=== PATIENT | male | born 1980 | race Caucasian/White ===

== ENCOUNTER 2022-04-19 11:08 | Inpatient (IN) ==
[~2022-04-19 11:08] MED LIST: SODIUM CHLORIDE 0.9% 1000ML 1,000 ML IV STA
--- NOTE | 2022-04-19 11:21 | Critical Care Consultation ---
Date of Consultation April 19, 2022 Assessment & Plan (1) Hanging, undetermined whether accidentally or purposely inflicted: Reason Critically Ill: 41-year-old mild male unresponsive after being found hanging in cell PLAN: Neuro: Acute encephalopathy -Suspect specific anoxic injury: Reported 20 minutes of possible strangulation -CT scan of head and neck pending will likely obtain MRI of brain and cervical spine Resp: Respiratory failure after strangulation CV: Cardiac arrest secondary to asphyxia -Maintain normothermia Fluids/Renal: Rule out acute kidney injury ID: No indication for anti-infectives GI/Nutrition: Rule out transaminitis/shock liver Heme: DVT prophylaxis: SCDs Endocrine: ICU hyperglycemia protocol Vascular access: Peripheral IVs Code Status: Full code Disposition: ICU (2) Cardiac arrest due to trauma: Supervising Physician Co-Signing Physician Notes I have personally spent 40 minutes of critical care time in the direct management of this patient. This is a life/limb threatening event. This includes time spent evaluating patient, direct bedside care, chart review, placing orders, interpretation of diagnostic studies, discussion with consultants, patient, and/or family members regarding treatment decisions, as well as other required patient management activities. This time is exclusive of all separately billable procedures, and teaching time and separate from and in addition to any other critical care service time. History of Present Illness Reason for Consultation: Hanging Requesting Physician: Michael Champion History of Present Illness Patient is a 41-year-old male who was brought in emergently from the half-way system, patient was reportedly found in his cell hanging, history is obtained from EMS providers, there was remote report of prior attempts. No additional history is available at this time. He received 2 rounds of epinephrine and CPR and had return of spontaneous circulation. His pupils have been fixed and dilated and he has had no spontaneous movements of his own. Review of Systems Review of Systems: Unobtainable due to endotracheal tube Physical Exam Physical Exam: General: GCS 3T, Neuro: Pupils fixed, dilated no obvious reactivity. No obvious cough, no spontaneous movements, no Babinski reflex unable to elicit patellar reflex at this time unable to elicit biceps reflex Skin: Warm, dry, numerous tattoos Head: Evidence of petechiae around face, sclera is edematous Neck: Arrived in cervical collar, ligature miki across the anterior portion of neck Ears, nose, mouth and throat: Obscured by endotracheal tube Cardiovascular: 2+ palpable pulses in all 4 extremities, normal sinus on monitor Respiratory: no respiratory distress, scattered rhonchi bilaterally Gastrointestinal: Non distended, no obvious hepatosplenomegaly Musculoskeletal: No obvious deformity Results & Data Critical Care Results & Data Lab & Micro Results (Past 24 Hours) No Data to Display No Data to Display No Data to Display Coding Level of Care Code 86845 CRITICAL CARE 1ST 30-74M Diagnoses Hanging, undetermined whether accidentally or purposely inflicted T71.164A Cardiac arrest due to trauma I46.8
--- NOTE | 2022-04-19 11:25 | Emergency Department Note ---
Impression & Plan Respiratory arrest, Atrial fibrillation with rapid ventricular response, Cardiac arrest, Acidosis, Intentional self-harm by hanging ED Provider Note NAME: JANEEN [id number] ASAD AGE: 41 SEX: M : 1980 ARRIVES VIA: Ambulance INFORMANT: [ems] ED PROVIDER(S): [Michael Champion MD] CHIEF COMPLAINT: Respiratory/cardiac arrest HISTORY OF PRESENT ILLNESS: The patient is a 50-year-old male from the local [facility] [place] [facility]. He was found hanging in his cell. He had last been seen 20 minutes prior. He was not breathing and there was no pulse. CPR was started immediately. An AED was shane lied and there was no shock advised. His initial rhythm was reported to be PEA. EMS arrived and continued CPR, performed endotracheal intubation and gave 2 rounds of epinephrine. Patient regained a pulse. He received 700 cc of saline in route. Initially, the patient was felt to be in atrial fibrillation. The blood pressure was in the 90s systolic. The patient was transported to our hospital. Patient does have a history of self hanging once before. Patient has made no attempt to take a breath on his own, there has been no movement of his extremities. By EMS report, his pupils appeared fixed and dilated. PMHx/PSHx: See Below SOCIAL HISTORY: See Below. PHYSICAL EXAM: GENERAL: Patient is in no acute distress. HEENT: No acute trauma, normocephalic atraumatic, mucous membranes moist. There is an oral endotracheal tube in place. Pupils at around 3 to 4 mm and fixed. They are equal bilaterally. Facial petechiae seen. NECK: No stridor, trachea is midline. There is a deep abrasion/hanging miki to the anterior neck. LUNGS: Clear to auscultation bilaterally with bagged ventilation, no wheeze, no rhonchi, breath sounds equal. HEART: Irregular rhythm, mildly tachycardic, no obvious murmur. ABDOMEN: Soft, nondistended. EXTREMITIES: No cyanosis or edema, no extremity gross deformities to indicate trauma. NEUROLOGIC: Pupils appear fixed. There is no attempt to take a spontaneous breath. No movement of the upper or lower extremities. No response to pain. SKIN: No jaundice, no diaphoresis. Back: No contusions, no step-off of the thoracic or lumbar spine. Genitalia: Circumcised, no erythema, no contusion. DIFFERENTIAL DIAGNOSIS: Respiratory arrest, cardiac arrest, [place], anoxic brain injury, dysrhythmia, electrolyte imbalance, acidosis, among others. EMERGENCY DEPARTMENT COURSE/PROCEDURES: Prior/Outside records reviewed: EMS records. ECG per my interpretation: Indication was cardiac arrest. The ECG shows what appears to be atrial fibrillation with a wide QRS in the form of a right bundle branch block. The rate was 106. No ST elevation was seen however, there was significant ST depression noted laterally and inferiorly. QTc was 518. No PVCs. No previous ECGs available for comparison. ECG #2 per my interpretation: Indication was cardiac arrest. The ECG shows a rapid atrial fibrillation with a rate of 175. There is a right bundle branch block pattern. PVCs are seen. There is some ST depression noted in the inferior and lateral leads. There is no obvious ST elevation. The QTc is 505. Compared to today's earlier ECG, the rate has increased, the QRS appears to have narrowed. Continuous Cardiac Monitoring per my interpretation: An order was placed for continuous cardiac monitoring. The monitor shows a rate of 109 with atrial fibrillation. Critical Care Note: I have personally spent 52 minutes of critical care time in the direct management of this patient. This includes bedside care, interpre tation of diagnostic studies, and testing, discussion with consultants, patient, and family members, and other required patient management activities. This 52 minutes is in excess of all separately billable procedures. Central Line placement: This procedure was performed by me. The area for the procedure was cleansed sterilely and prepared for the procedure. Sterile marlene hnique was employed. Using the Seldinger technique, I was able to cannulate the right femoral vein. No significant complications. There was no arterial stick during the procedure. All ports did flush well. The line was then sutured into position. MEDICAL DECISION MAKING: There is a moderate leukocytosis, this could be consistent with infection or just the stress of the presentation. There was a normal hemoglobin and platelet count. INR was slightly elevated. Initial ABG showed a pH of 6.95 and CO2 retention with a value of 109. Creatinine was slightly high at 1.56, glucose was elevated at around 300. Lactic acid level was quite high at over 11, this would be consistent with hypoxia. AST and ALT were elevated. Troponin was elevated consistent with cardiac injury/strain. Lipase was elevated at 121. COVID test returned negative. ECG showed atrial fibrillation with a wide QRS and a right bundle branch block. There was no ST elevation. Brain CT suggested anoxic injury with loss of spencer-white matter differentiation. C-spine CT did not show any fracture or vascular injury. Chest film per my review did not show CHF, pneumothorax or cardiomegaly. The endotracheal tube was in proper position On exam, the patient's pupils were fixed, they did not react to light. Petechial hemorrhaging was seen across the face consistent with hanging. The p atient did not have any spontaneous respirations and there was no movement of his extremities seen even with painful stimuli. During the patient's ED stay, he did again lose a pulse. He received CPR, 1 dose of IV epinephrine, 1 dose of IV calcium, 2 doses of IV bicarbonate. He regained a pulse with this regimen. The patient's ventilation rate was increased to help combat the respiratory acidosis. Repeat ABG showed improvement of the acidosis and improvement of the CO2 retention. The patient's blood pressure dropped during his stay. He was ordered for 1 L of IV saline. He was initially placed on an epinephrine drip however, this caused a much faster heart rate. Patient was switched to a phenylephrine drip to control the blood pressure. I did place a right femoral central line as noted above, no complications. Patient was ordered for a nasogastric tube as well as a Mukherjee catheter. The ICU was contacted, Dr. Abbott did arrive in the room. Arctic cooling was not initiated. I spoke to case management, I did speak with the [facility] [place] [facility], the on-call hospitalist was consulted. In short, the patient presents in cardiac arrest from what was likely a respiratory arrest. He is in critical condition with evidence for anoxic brain injury. His chance for survival is extremely limited. DISPOSITION: The patient's presentation and findings warrant a hospital stay and ICU care. Past Med/Surg History Medical History No significant medical problems Social History Smoking Status: Unknown if ever smoked Hx Alcohol Use: No Hx Substance Use: No Forensic Anthropologist Required: No Current Living Situation: Other Feels Safe at Home: No Is there a partner from a previous relationship who is making you feel unsafe now?: No Any Concerns about Your Family Situation: No Would You Like to Speak to Someone About Your Situation: No Assistive Devices: None Allergies Allergies Allergy/AdvReac Type Severity Reaction Status Date / Time Fish Containing Products Allergy Unknown Verified 04/19/22 12:21 Home Meds Home Medications Medication Instructions Recorded Confirmed guanfacine 2 mg tablet,extended 2 mg PO DAILY 04/19/22 04/19/22 release 24 hr saliva stimulant comb. no.3 2 spray mucous membrane TID PRN 04/19/22 04/19/22 (Biotene Moisturizing Mouth Dry Mouth mucosal spray) topiramate 50 mg tablet 50 mg PO DAILY 04/19/22 04/19/22 Results & Data (ED) Vital Signs Vital Signs - 24 hr 04/19/22 11:09 04/19/22 11:10 04/19/22 11:27 Pulse Rate 121 H Pulse Rate [Apical] 121 H Blood Pressure [Right Arm] 144/80 H Blood Pressure Mean [Right Arm] 101 Sepsis Recent Fever Within 48 Hours No Sepsis New/Unexplained Change in Mental Status N/A Sepsis Action Taken by Nursing No Action Required Home Medications Current Medication List: was personally reviewed by me Laboratory Data Attestation: I reviewed the patient's lab results. 04/19/22 11:27 04/19/22 11:27 Lab Results 04/19/22 04/19/22 04/19/22 Range/Units 11:27 11:27 11:27 WBC (4.8-10.8) K/ul RBC (4.70-6.10) M/uL Hgb (14.0-18.0) g/dl Hct (42.0-52.0) % MCV (80.0-100.0) fL MCH (25.0-34.0) pg MCHC (32.0-36.0) g/dL RDW Std Deviation (36.4-46.3) fL RDW Coeff of Lyndsay (11.5-14.5) % Plt Count (130-400) K/uL MPV (9.4-12.4) fL Absolute Nucleated RBC (0-0.12) K/uL Nucleated RBC % (auto) % Neutrophils % (Manual) % Lymphocytes % (Manual) % Monocytes % (Manual) % Metamyelocytes % (Man) % Myelocytes % (Man) % Neutrophils # (Manual) (1.40-6.50) K/uL Total Absolute Neuts (1.4-6.5) K/uL Lymphocytes # (Manual) (1.2-3.4) K/uL Total Abs Lymphocytes (1.2-3.4) K/uL Monocytes # (Manual) (0.11-0.59) K/uL Metamyelocytes # (Man) (0-0) K/uL Myelocytes # (Manual) (0-0) K/uL Echinocytes PT 14.0 H (9.0-12.0) Seconds INR 1.3 H (0.9-1.1) APTT 44.6 H (21.0-31.0) Seconds PTT Ratio 1.6 Sodium 138 (136-145) mmol/L Potassium 4.8 (3.5-5.1) mmol/L Chloride 104 (98-107) mmol/L Carbon Dioxide 20 L (21-32) mmol/L Anion Gap 14 H (3-11) BUN 12 (6-23) mg/dl Creatinine 1.56 H (0.6-1.4) mg/dl Est Cr Clr Drug Dosing Not Reportable Est GFR ( Amer) 63.5 ml/min Est GFR (Non-Af Amer) 54.8 ml/min BUN/Creatinine Ratio 7.7 L (10-20) Glucose 315 H* (70-99(Fasting)) mg/dl Lactate 11.2 H* (0.4-2.0) mmol/L Calcium 8.8 (8.5-10.1) mg/dl Total Bilirubin 0.4 (0.2-1.0) mg/dl AST 705 H (13-39) U/L ALT 1411 H (7-52) U/L Alkaline Phosphatase 94 (34-104) U/L Total Creatine Kinase 333 H (30-223) U/L Troponin I High Sens 136.8 H* (0-20) pg/ml Total Protein 6.0 (6.0-8.3) gm/dl Albumin 3.8 (3.4-5.0) gm/dl Globulin 2.2 L (2.5-4.0) gm/dl Albumin/Globulin Ratio 1.7 (0.9-2) Lipase 121 H (11-82) U/L 04/19/22 Range/Units 11:27 WBC 15.94 H (4.8-10.8) K/ul RBC 5.28 (4.70-6.10) M/uL Hgb 15.9 (14.0-18.0) g/dl Hct 48.3 (42.0-52.0) % MCV 91.5 (80.0-100.0) fL MCH 30.1 (25.0-34.0) pg MCHC 32.9 (32.0-36.0) g/dL RDW Std Deviation 41.8 (36.4-46.3) fL RDW Coeff of Lyndsay 12.6 (11.5-14.5) % Plt Count 191 (130-400) K/uL MPV 10.2 (9.4-12.4) fL Absolute Nucleated RBC 0.02 (0-0.12) K/uL Nucleated RBC % (auto) 0.1 % Neutrophils % (Manual) 70 % Lymphocytes % (Manual) 22 % Monocytes % (Manual) 4 % Metamyelocytes % (Man) 2 % Myelocytes % (Man) 2 % Neutrophils # (Manual) 11.16 H (1.40-6.50) K/uL Total Absolute Neuts 11.16 H (1.4-6.5) K/uL Lymphocytes # (Manual) 3.51 H (1.2-3.4) K/uL Total Abs Lymphocytes 3.51 H (1.2-3.4) K/uL Monocytes # (Manual) 0.64 H (0.11-0.59) K/uL Metamyelocytes # (Man) 0.32 H (0-0) K/uL Myelocytes # (Manual) 0.32 H (0-0) K/uL Echinocytes 1+ PT (9.0-12.0) Seconds INR (0.9-1.1) APTT (21.0-31.0) Seconds PTT Ratio Sodium (136-145) mmol/L Potassium (3.5-5.1) mmol/L Chloride (98-107) mmol/L Carbon Dioxide (21-32) mmol/L Anion Gap (3-11) BUN (6-23) mg/dl Creatinine (0.6-1.4) mg/dl Est Cr Clr Drug Dosing Est GFR ( Amer) ml/min Est GFR (Non-Af Amer) ml/min BUN/Creatinine Ratio (10-20) Glucose (70-99(Fasting)) mg/dl Lactate (0.4-2.0) mmol/L Calcium (8.5-10.1) mg/dl Total Bilirubin (0.2-1.0) mg/dl AST (13-39) U/L ALT (7-52) U/L Alkaline Phosphatase (34-104) U/L Total Creatine Kinase (30-223) U/L Troponin I High Sens (0-20) pg/ml Total Protein (6.0-8.3) gm/dl Albumin (3.4-5.0) gm/dl Globulin (2.5-4.0) gm/dl Albumin/Globulin Ratio (0.9-2) Lipase (11-82) U/L Administered Medications Discontinued Medications Amiodarone HCl/Dextrose (Amiodarone 150mg / 100ml D5w) Confirm Administered Dose 150 mg IV .STK-MED ONE Stop: 04/19/22 14:03 Last Admin: 04/19/22 14:16 Dose: Not Given Documented By: ES Amiodarone HCl/Dextrose (Amiodarone 360mg / 200ml D5w) Confirm Administered Dose 360 mg IV .STK-MED ONE Stop: 04/19/22 14:03 Last Admin: 04/19/22 14:16 Dose: Not Given Documented By: ES Amiodarone HCl (Amiodarone Iv Bolus & Drip) 1 each IV NOW STA; Protocol Stop: 04/19/22 14:06 Last Admin: 04/19/22 14:17 Dose: Not Given Documented By: ES Sodium Chloride (Nss 1000ml) 1,000 mls @ 999 mls/hr IV .Q1H1M STA Stop: 04/19/22 12:05 Last Infusion: 04/19/22 11:45 Dose: 0 mls/hr Documented By: Admin: 04/19/22 11:29 Dose: 999 mls/hr Documented By: RC Epinephrine HCl () 4 mg in 254 mls @ 51.092 mls/hr IV .Q4H59M [facility]; Protocol Stop: 05/19/22 12:44 Last Admin: 04/19/22 13:48 Dose: Not Given Documented By: ES Phenylephrine HCl (Phenylephrine/Nss) 25 mg in 250 mls @ 26.82 mls/hr IV .Q9H20M [facility] [place]; Protocol Stop: 05/19/22 12:45 Last Admin: 04/19/22 13:48 Dose: Not Given Documented By: YAZMIN Sodium Bicarbonate 75 meq/ (Sodium Chloride) 1,075 mls @ 125 mls/hr IV .Q8H36M ARTUR Stop: 05/19/22 13:14 Last Admin: 04/19/22 13:48 Dose: Not Given Documented By: YAZMIN Vasopressin 20 units/ Sodium (Chloride) 101 mls @ 12.12 mls/hr IV .Q8H20M [facility] [place] Stop: 05/19/22 13:14 Last Infusion: 04/19/22 15:49 Dose: 0 unit/min, 0 mls/hr Documented By: Infusion: 04/19/22 14:10 Dose: 0.04 unit/min, 12.1 mls/hr Documented By: Admin: 04/19/22 13:46 Dose: 0.04 unit/min, 12.1 mls/hr Documented By: YAZMIN Co-signed By: ANDI Epinephrine HCl () 4 mg in 254 mls @ 6.812 mls/hr IV .Q24H [facility] [place]; Protocol Stop: 05/19/22 13:14 Last Titration: 04/19/22 15:30 Dose: 0 mcg/kg/min, 0 mls/hr Documented By: Titration: 04/19/22 14:10 Dose: 0 mcg/kg/min, 0 mls/hr Documented By: Admin: 04/19/22 13:47 Dose: 0.02 mcg/kg/min, 6.8 mls/hr Documented By: YAZMIN Co-signed By: ANDI Norepinephrine Bitartrate (Levophed/D5w) 4 mg in 250 mls @ 16.763 mls/hr IV .F16H85Y [facility] [place]; Protocol Stop: 05/19/22 13:14 Last Titration: 04/19/22 15:30 Dose: 0 mcg/kg/min, 0 mls/hr Documented By: Titration: 04/19/22 14:18 Dose: 0 mcg/kg/min, 0 mls/hr Documented By: Titration: 04/19/22 14:10 Dose: 0.1 mcg/kg/min, 33.5 mls/hr Documented By: Admin: 04/19/22 13:46 Dose: 0.05 mcg/kg/min, 16.8 mls/hr Documented By: YAZMIN Co-signed By: ANDI Phenylephrine HCl (Phenylephrine/Nss) 25 mg in 250 mls @ 26.82 mls/hr IV .Q9H20M [facility] [place]; Protocol Stop: 05/19/22 13:14 Last Titration: 04/19/22 15:30 Dose: 0 mcg/kg/min, 0 mls/hr Documented By: NAYELI Co-signed By: [id number] Admin: 04/19/22 14:59 Dose: 6 mcg/kg/min, 321.8 mls/hr Documented By: YAZMIN Co-signed By: NAYELI Titration: 04/19/22 14:56 Dose: 6 mcg/kg/min, 321.8 mls/hr Documented By: YAZMIN Co-signed By: [email or web address] Titration: 04/19/22 14:10 Dose: 6 mcg/kg/min, 321.8 mls/hr Documented By: YAZMIN Co-signed By: ANDI Admin: 04/19/22 13:58 Dose: 0.5 mcg/kg/min, 26.8 mls/hr Documented By: YAZMIN Co-signed By: MARY Sodium Bicarbonate 150 meq/ (Sodium Chloride) 1,150 mls @ 100 mls/hr IV .T21Q50A [facility] [place] Stop: 05/19/22 13:29 Last Infusion: 04/19/22 15:30 Dose: 0 mls/hr Documented By: Admin: 04/19/22 13:48 Dose: 100 mls/hr Documented By: YAZMIN Amiodarone HCl/Dextrose (Nexterone / D5w) 150 mg in 100 mls @ 600 mls/hr IV NOW STA Stop: 04/19/22 14:14 Last Infusion: 04/19/22 14:17 Dose: 0 mls/hr Documented By: YAZMIN Co-signed By: [id number] Admin: 04/19/22 14:15 Dose: 600 mls/hr Documented By: YAZMIN Co-signed By: [id number] Amiodarone HCl/Dextrose (Nexterone / D5w) 360 mg in 200 mls @ 33.333 mls/hr IV ONE ONE Stop: 04/19/22 20:16 Last Infusion: 04/19/22 15:47 Dose: 0 mg/min, 0 mls/hr Documented By: NAYELI Co-signed By: [id number] Admin: 04/19/22 14:16 Dose: 1 mg/min, 33.3 mls/hr Documented By: YAZMIN Co-signed By: [id number] Miscellaneous ([facility] Protocol For Hyperglycemia) 1 each N/A ACHS ARTUR Stop: 04/21/22 11:29 Last Admin: 04/19/22 13:47 Dose: Not Given Documented By: YAZMIN Imaging Data Radiologist's Impression: Cervical Spine CT 04/19/22 11:[address] WITH CONTRAST CLINICAL HISTORY: hanging, arrest COMPARISON STUDY: No previous studies for comparison. TECHNIQUE: Axial images of the cervical spine were obtained following intravenous injection of 89 cc of Optiray 350 IV. Sagittal and coronal reconstructions were viewed. Automated exposure control was utilized for the study. A dose lowering technique was utilized adhering to the principles of ALARA. FINDINGS: The head CT will be reported separately. Findings suggestive of cerebral edema are better depicted on that exam. There is straightening of the normal cervical lordosis. No cervical spine fracture is noted. Endotracheal and nasogastric tubes are partially imaged. Vascular opacification is less than expected on this exam. This could be technical or due to decreased cardiac output. Asymmetric ground glass opacities within the left lung apex are i ncidentally noted. IMPRESSION: 1. No cervical spinal fracture. 2. Findings suggestive of cerebral edema better depicted on the head CT. 3. Extensive asymmetric ground glass opacities within the left lung apex, partially imaged. ACT 112: Negative or not required by law. Electronically signed by: Josue Del Valle M.D. 04/19/2022 11:[address] 04/19/22 11:[address] DOSE: 1180.60 mGy.cm HISTORY: hanging, cardiac arrest TECHNIQUE: Multiaxial CT images of the head were performed without the use of intravenous contrast. Automated exposure control was utilized for this study. A dose lowering technique was utilized adhering to the principles of ALARA. Comparison: None. Findings: Opacified right frontal sinus. The mastoid air cells are clear. The calvarium and skull base are intact. Diminished spencer-white differentiation throughout the brain with loss of the normal sulci and mild effacement of the basilar cisterns. This is consistent with diffuse cerebral edema. No mass, midline shift, intracranial hemorrhage identified. Impression: Diminished spencer-white differentiation throughout the brain with loss of the normal sulci and mild effacement of the basilar cisterns. This is consistent with diffuse cerebral edema in the setting of hypoxic/ischemic injury. ACT 112: Negative or not required by law. Electronically signed by: Gama Redmond M.D. 04/19/2022 11:53 AM Chest X-Ray 04/19/22 11:06 XR chest 1V portable CLINICAL HISTORY: Chest pain, nonspecific TECHNIQUE: Single frontal radiograph of the chest was obtained. Comparison: None available at the time of this dictation. FINDINGS: Endotracheal tube terminates 26 mm from the irving. The cardiomediastinal silhouette is normal. The lungs are clear. No evidence of pleural effusion or pneumothorax. IMPRESSION: Satisfactory position of endotracheal tube. ACT 112: Negative or not required by law. Electronically signed by: Anmol Arroyo M.D. 04/19/2022 11:44 AM Discharge Plan Visit Data Patient Disposition: Admitted As Inpatient Condition: Critical Discharge Instructions Interventions: ED Discharge Assessment Last Done: 04/19/22 13:23
[2022-04-19] MEDS ORDERED: ICU Protocol for HYPERglycemia SCH (11:30)
[2022-04-19] MEDS ORDERED: OPTIRAY 350 100ml IV ONE (11:40)
--- NOTE | 2022-04-19 11:45 | XRay Report ---
XR chest 1V portable CLINICAL HISTORY: Chest pain, nonspecific TECHNIQUE: Single frontal radiograph of the chest was obtained. Comparison: None available at the time of this dictation. FINDINGS: Endotracheal tube terminates 26 mm from the irving. The cardiomediastinal silhouette is normal. The l ungs are clear. No evidence of pleural effusion or pneumothorax. IMPRESSION: Satisfactory position of endotracheal tube. ACT 112: Negative or not required by law. Electronically signed by: Anmol Arroyo M.D. 04/19/2022 11:44 AM
--- NOTE | 2022-04-19 11:55 | CT Scan Report ---
HEAD CT NONCONTRAST CT DOSE: 1180.60 mGy.cm HISTORY: hanging, cardiac arrest TECHNIQUE: Multiaxial CT images of the head were performed without the use of intravenous contrast. A utomated exposure control was utilized for this study. A dose lowering technique was utilized adheri ng to the principles of ALARA. Comparison: None. Findings: Opacified right frontal sinus. The mastoid air cells are clear. The calvarium and skull bas e are intact. Diminished spencer-white differentiation throughout the brain with loss of the normal sulc i and mild effacement of the basilar cisterns. This is consistent with diffuse cerebral edema. No mas s, midline shift, intracranial hemorrhage identified. Impression: Diminished spencer-white differentiation throughout the brain with loss of the normal sulci and mild eff acement of the basilar cisterns. This is consistent with diffuse cerebral edema in the setting of hyp oxic/ischemic injury. ACT 112: Negative or not required by law. Electronically signed by: Gama Redmond M.D. 04/19/2022 11:53 AM
--- NOTE | 2022-04-19 12:01 | CT Scan Report ---
CERVICAL SPINE CT WITH CONTRAST CLINICAL HISTORY: hanging, arrest COMPARISON STUDY: No previous studies for comparison. TECHNIQUE: Axial images of the cervical spine were obtained following intravenous injection of 89 cc of Optiray 350 IV. Sagittal and coronal reconstructions were viewed. Automated exposure control was u tilized for the study. A dose lowering technique was utilized adhering to the principles of ALARA. FINDINGS: The head CT will be reported separately. Findings suggestive of cerebral edema are better d epicted on that exam. There is straightening of the normal cervical lordosis. No cervical spine fract ure is noted. Endotracheal and nasogastric tubes are partially imaged. Vascular opacification is less than expected on this exam. This could be technical or due to decreased cardiac output. Asymmetric g round glass opacities within the left lung apex are incidentally noted. IMPRESSION: 1. No cervical spinal fracture. 2. Findings suggestive of cerebral edema better depicted on the head CT. 3. Extensive asymmetric ground glass opacities within the left lung apex, partially imaged. ACT 112: Negative or not required by law. Electronically signed by: Josue Del Valle M.D. 04/19/2022 11:59 AM
[2022-04-19 12:03] LABS: Hematocrit (blood only) 48.3 % (42.0-52.0); Hemoglobin 15.9 g/dl (14.0-18.0); Mean Corpuscular Hemoglobin 30.1 pg (25.0-34.0); Mean Corpuscular Hgb Conc 32.9 g/dL (32.0-36.0); Mean Corpuscular Volume 91.5 fL (80.0-100.0); Mean Platelet Volume 10.2 fL (9.4-12.4); Nucleated RBC # (auto) 0.02 K/uL (0-0.12); Nucleated RBC % (auto) 0.1 %; Platelet Count 191 K/uL (130-400); RDW Coefficient of Variation 12.6 % (11.5-14.5); RDW Standard Deviation 41.8 fL (36.4-46.3); Red Blood Count 5.28 M/uL (4.70-6.10); White Blood Count 15.94 K/ul (4.8-10.8)
[2022-04-19 12:07] LABS: iSTAT Arterial Blood Gas HCO3 24 meg/L (19-24); iSTAT Arterial Blood Gas pCO2 109 mmHg (35-46); iSTAT Arterial Blood Gas pH 6.95 (7.35-7.45); iSTAT Arterial Blood Gas pO2 94 mmHg (80-95); iSTAT Carbon Dioxide 28 mmol/L (24-31); iSTAT Hematocrit 41 % (42-52); iSTAT Hemoglobin 13.9 g/dl (14.0-18.0); iSTAT Potassium 4.9 mmol/L (3.3-5.0); iSTAT Sodium 137 mmol/L (135-144)
[2022-04-19 12:21] LABS: Echinocytes 1+
[2022-04-19 12:25] LABS: Albumin Globulin Ratio 1.7 (0.9-2); Albumin Level 3.8 gm/dl (3.4-5.0); Alkaline Phosphatase 94 U/L (34-104); Anion Gap 14 (3-11); Aspartate Aminotransferase 705 U/L (13-39); BUN Creatinine Ratio 7.7 (10-20); Bilirubin,Total 0.4 mg/dl (0.2-1.0); Blood Urea Nitrogen 12 mg/dl (6-23); Calcium 8.8 mg/dl (8.5-10.1); Carbon Dioxide 20 mmol/L (21-32); Chloride 104 mmol/L (98-107); Creatine Kinase 333 U/L (30-223); Est GFR (African American) 63.5 ml/min; Est GFR (Non-African American) 54.8 ml/min; Globulin 2.2 gm/dl (2.5-4.0); Glucose 315 mg/dl (70-99(Fasting)); Lipase 121 U/L (11-82); Potassium 4.8 mmol/L (3.5-5.1); Sodium 138 mmol/L (136-145)
[2022-04-19 12:33] LABS: INR 1.3 (0.9-1.1); Partial Thromboplastin Ratio 1.6; Partial Thromboplastin Time 44.6 Seconds (21.0-31.0)
[2022-04-19 12:36] LABS: Troponin I High Sensitivity 136.8 pg/ml (0-20)
[2022-04-19 12:45] LABS: Alanine Aminotransferase 1411 U/L (7-52)
[2022-04-19] MEDS ORDERED: PHENYLEPHRINE IV SCH (12:45)
[2022-04-19] MEDS ORDERED: Standard 16mcg/mL; 4 MG in 250 mL for HYPOTENSION IV SCH (12:45)
[2022-04-19 12:51] LABS: ALC (manual) 3.51 K/uL (1.2-3.4); ANC (manual) 11.16 K/uL (1.4-6.5); Lymphocytes # (manual) 3.51 K/uL (1.2-3.4); Lymphocytes % (manual) 22 %; Metamyelocytes # (manual) 0.32 K/uL (0-0); Metamyelocytes % (manual) 2 %; Monocytes # (manual) 0.64 K/uL (0.11-0.59); Monocytes % (manual) 4 %; Myelocytes # (manual) 0.32 K/uL (0-0); Myelocytes % (manual) 2 %; Neutrophils # (manual) 11.16 K/uL (1.40-6.50); Neutrophils % (manual) 70 %
[2022-04-19 12:56] LABS: iSTAT Arterial Blood Gas HCO3 19 meg/L (19-24); iSTAT Arterial Blood Gas pCO2 53 mmHg (35-46); iSTAT Arterial Blood Gas pH 7.17 (7.35-7.45); iSTAT Arterial Blood Gas pO2 172 mmHg (80-95); iSTAT Carbon Dioxide 21 mmol/L (24-31)
[2022-04-19] MEDS ORDERED: STAT IV Infusion **Titration per Protocol STA ×2 (13:15→14:05)
[2022-04-19] MEDS ORDERED: VASOPRESSIN 20 UNITS in 0.9 % SODIUM CHLORIDE 100 ML IV SCH (13:15)
[2022-04-19] MEDS ORDERED: SODIUM BICARBONATE 8.4% 75 MEQ in SODIUM CHLORIDE 0.45 % 1,000 ML IV SCH (13:15)
[2022-04-19] MEDS ORDERED: NOREPINEPHRINE/D5W 4 MG/250 ML PLCT IV SCH (13:15)
[2022-04-19] MEDS ORDERED: EPINEPHrine/NSS 4 MG/254 ML BAG IV SCH (13:15)
[2022-04-19] MEDS ORDERED: SODIUM BICARBONATE 8.4% 150 MEQ in SODIUM CHLORIDE 0.45 % 1,000 ML IV SCH (13:30)
[2022-04-19] MEDS: PHENYLEPHRINE/NSS 25 MG/250 ML BAG IV SCH ×2 (13:58→14:59)
[2022-04-19] MEDS ORDERED: AMIODARONE 150MG / 100ML D5W IV ONE (14:02)
[2022-04-19] MEDS ORDERED: AMIODARONE 360MG / 200ML D5W IV ONE (14:02)
[2022-04-19] MEDS ORDERED: 0.2 MICRON FILTER SET 1 EACH IV STA (14:05)
[2022-04-19] MEDS ORDERED: AMIODARONE / D5W 150 MG/100 ML BAG IV STA ×2 (14:05)
[2022-04-19] MEDS ORDERED: 0.2 MICRON FILTER SET 1 EACH IV ONE (14:05)
[2022-04-19] MEDS ORDERED: AMIODARONE IV BOLUS & DRIP IV STA (14:05)
[2022-04-19] MEDS ORDERED: Nursing to Pharmacy Communication SCH (14:15)
[2022-04-19] MEDS ORDERED: AMIODARONE / D5W 360 MG/200 ML BAG IV ONE (14:17)
[2022-04-19 14:18] LABS: iSTAT Art Bld Gas pCO2 Correct 33 mmHg (35-46); iSTAT Art Bld Gas pH Corrected 7.379 (7.35-7.45); iSTAT Arterial Blood Gas HCO3 20 meg/L (19-24); iSTAT Arterial Blood Gas pCO2 37 mmHg (35-46); iSTAT Arterial Blood Gas pH 7.34 (7.35-7.45); iSTAT Arterial Blood Gas pO2 176 mmHg (80-95); iSTAT Arterial Blood Gas pO2 C 163; iSTAT Carbon Dioxide 21 mmol/L (24-31); iSTAT Hematocrit 52 % (42-52); iSTAT Hemoglobin 17.7 g/dl (14.0-18.0); iSTAT Potassium 3.9 mmol/L (3.3-5.0); iSTAT Site Art Line; iSTAT Sodium 141 mmol/L (135-144)
--- NOTE | 2022-04-19 15:13 | Electrocardiogram Report ---
Test Reason : Blood Pressure : / mmHG Vent. Rate : 106 BPM Atrial Rate : 064 BPM P-R Int : 000 ms QRS Dur : 172 ms QT Int : 390 ms P-R-T Axes : 000 270 046 degrees QTc Int : 518 ms Poor data quality, interpretation may be adversely affected Atrial fibrillation with rapid ventricular response Right bundle branch block Left anterior fascicular block Bifascicular block Abnormal ECG No previous ECGs available Confirmed by Cezar Gonzalez ([id number]) on 04/19/2022 3:12:46 PM Referred By: [facility] Confirmed By:Cezar Gonzalez
--- NOTE | 2022-04-19 15:14 | Electrocardiogram Report ---
Test Reason : Blood Pressure : / mmHG Vent. Rate : 175 BPM Atrial Rate : 175 BPM P-R Int : 000 ms QRS Dur : 188 ms QT Int : 296 ms P-R-T Axes : 000 -72 053 degrees QTc Int : 505 ms Poor data quality, interpretation may be adversely affected Atrial fibrillation with rapid ventricular response with premature ventricular or aberrantly conducte d complexes Right bundle branch block Left anterior fascicular block Bifascicular block Abnormal ECG When compared with ECG of 19-APR-2022 11:26, (unconfirmed) Vent. rate has increased BY 69 BPM Nonspecific T wave abnormality now evident in Inferior leads Nonspecific T wave abnormality, worse in Anterolateral leads Confirmed by Cezar Gonzalez ([id number]) on 04/19/2022 3:13:45 PM Referred By: [facility] Confirmed By:Cezar Gonzalez
[2022-04-19 15:24] LABS: Alanine Aminotransferase 1669 U/L (7-52); Alkaline Phosphatase 131 U/L (34-104); Anion Gap 11 (3-11); Aspartate Aminotransferase 948 U/L (13-39); BUN Creatinine Ratio 10.2 (10-20); Bilirubin,Total 0.7 mg/dl (0.2-1.0); Blood Urea Nitrogen 16 mg/dl (6-23); Calcium 9.1 mg/dl (8.5-10.1); Carbon Dioxide 20 mmol/L (21-32); Chloride 108 mmol/L (98-107); Est GFR (Non-African American) 54.3 ml/min; Glucose 251 mg/dl (70-99(Fasting)); Potassium 3.8 mmol/L (3.5-5.1); Sodium 139 mmol/L (136-145); Total Protein 6.1 gm/dl (6.0-8.3)
[2022-04-19 15:26] LABS: Bilirubin Direct 0.1 mg/dl (0-0.2)
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
[2022-04-19 15:45] LABS: INR 1.9 (0.9-1.1); Partial Thromboplastin Ratio 1.8; Prothrombin Time 19.3 Seconds (9.0-12.0)
[2022-04-19 16:01] LABS: Fibrinogen 73 mg/dl (184-400); Partial Thromboplastin Time 48.4 Seconds (21.0-31.0)
[2022-04-19] MEDS ORDERED: SODIUM CHLORIDE 0.9% 10ML FLUSH IV ONE (16:37)
[2022-04-19] MEDS ORDERED: SODIUM BICARB 8.4% INJ 50 MEQ/50 ML SYR IV ONE (16:37)
[2022-04-19] MEDS ORDERED: CALCIUM CHLORIDE 10% 10 ML SYR IV ONE (16:37)
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
[2022-04-19] MEDS ORDERED: ICU ELECTROLYTE REPLACEMENT PROTOCOL SCH (18:00)
[2022-04-19] MEDS ORDERED: AMIODARONE / D5W 360 MG/200 ML BAG IV SCH (20:15)
[2022-04-19] MEDS ORDERED: DOCUSATE SODIUM 100 MG CAP PO SCH (21:00)
[2022-04-20] MEDS ORDERED: PANTOprazole 40 MG TAB PO SCH (09:00)
== END 2022-04-19 16:38 | disposition expired | DRG 923 ==
LOC: ED 11:08 → 1E 11:30